=== PATIENT | female | born 1960 | race Caucasian/White ===

== ENCOUNTER → 2016-11-05 | Day surgery (SDC) | payer MEDICARE, OTHER ==
[~2016-11-05] MED LIST: Lactated Ringers 1,000 ML IV SCH; Propofol 200 MG/20 ML SDV IV ONE
[2016-11-05 10:51] VITALS: BP 144/81
--- NOTE | 2016-11-08 07:23 | OR ---
DATE OF OPERATION: 11/05/2016 PREOPERATIVE DIAGNOSIS: 1. FAMILY HISTORY OF COLON CANCER. 2. HISTORY OF POLYPS. POSTOPERATIVE DIAGNOSIS: 1. FAMILY HISTORY OF COLON CANCER. 2. HISTORY OF POLYPS. SURGEON: Hao Herrera MD PROCEDURE: FULL-LENGTH COLONOSCOPY. ANESTHESIA: [employer] due to obesity, history of anemia, and chest pain. COMPLICATIONS: None. SPECIMEN: None. FINDINGS: 1. Full-length colonoscopy. 2. Mild distal sigmoid diverticulosis. RECOMMENDATIONS: Follow up colonoscopy every 5 years. INDICATIONS: The patient was in for a physical. She has a family history of colon cancer and prior polyps removed. She is due for a five year follow up scope. DESCRIPTION OF PROCEDURE: The patient was prepped and draped, placed in the left lateral decubitus position. A lubricated Olympus colonoscope was inserted and easily advanced to the cecum. Direct visualization of the ileocecal valve and appendiceal orifice was accomplished. Bowel prep was marginal. A lot of liquid stool present most of this was able to be suctioned. Upon withdrawal, cecum, ascending, and transverse colon were completely unremarkable, throughout the entire left colon. I found no signs of any polyps, masses, ulcerations, or bleeding sites. No vascular abnormalities or signs of colitis. The patient does have diverticular disease mild in the mid to distal sigmoid colon up into the rectosigmoid junction. No signs of any acute inflammatory change. The rectal vault was benign. Retroflexion of the scope in the rectum showed no anal lesions. Air was then suctioned. The scope was removed without complication. RADHA/RENA /[id number]
== END ==
LOC: CC.SDS 09:05
PROVIDERS: ATTEND Family Medicine
DX: Z12.11 Encounter for screening for malignant neoplasm of colon (principal); Z80.0 Family history of malignant neoplasm of digestive organs; Z86.010 Personal history of colon polyps; K57.30 Diverticulosis of large intestine without perforation or abscess without bleeding; D51.9 Vitamin B12 deficiency anemia, unspecified; Z79.899 Other long term (current) drug therapy; Z98.84 Bariatric surgery status; Z98.890 Other specified postprocedural states; Z96.649 Presence of unspecified artificial hip joint
CPT/HCPCS: G0105; J2704; J7120; 00810

== ENCOUNTER 2020-09-23 12:20 | Emergency (ER) | payer MEDICARE, OTHER ==
[2020-09-23 13:00] LABS: CHLORIDE,CL 104 mEq/L (98-106); SODIUM,NA 140 mEq/L (136-145)
[2020-09-23 13:06] VITALS: BP 142/68; PULSE 79
--- NOTE | 2020-09-23 13:29 | EDM.PDOC ---
ED HPI GENERAL MEDICAL PROBLEM - General Chief Complaint: General Stated Complaint: DIZZY,N/V Time Seen by Provider: 09/23/20 12:55 Source of Information: Reports: Patient History Limitations: Reports: No Limitations - History of Present Illness INITIAL COMMENTS - FREE TEXT/NARRATIVE: Ksenia is a 60 yo female who presents to the ED with complaints of dizziness. States it came on all of a sudden this morning. She states it is a little better presently and notices if she doesn't look up or move her head it is a lot better. States when she was dizzy she did dry heave a few times. Currently denies any dizziness at this time. States when she was walking she felt worse turning her head to the right as compared to the left. States she feels exhausted today. Admits to a lot of stress as her is currently on hospice care and she is the one caring for him. States she does have a sister who has had brain aneurysm's in the past. She denies any headaches, no vision changes, loss of vision, chest pain, shortness of breath, palpitations, etc.. No urinary symptoms. At this time admit she feels she is almost back to her baseline. Right Hip Pain Score (Numeric/FACES): 3 - Related Data Allergies Allergy/AdvReac Type Severity Reaction Status Date / Time No Known Allergies Allergy Verified 09/23/20 12:30 Home Meds: Home Meds Ascorbic Acid [Vitamin C] 500 mg PO DAILY 11/04/16 [History] Cholecalciferol (Vitamin D3) [Vitamin D] 5,000 units PO DAILY 11/04/16 [History] Cyanocobalamin (Vitamin B-12) [Cyanocobalamin Injection] 1,000 mcg IM Q30D 11/04/16 [History] Ferrous Sulfate [Iron] 325 mg PO TID 11/04/16 [History] Magnesium Oxide [Magnesium] 400 mg PO DAILY 11/04/16 [History] Vitamin A 8,000 units PO DAILY 11/04/16 [History] Meclizine [Antivert] 25 mg PO TID PRN #15 tab 09/23/20 [Rx] Pacific-3 Fatty Acids/Fish Oil [Fish Oil 1,000 mg Capsule] 1 cap PO DAILY 09/23/20 [History] Past Medical History HEENT History: Reports: Cataract - Past Surgical History Musculoskeletal Surgical History: Reports: Hip Replacement Other Musculoskeletal Surgeries/Procedures:: R) total hip replacement 09/15/19 Social & Family History - Tobacco Use Tobacco Use Status *Q: Never Tobacco User - Caffeine Use Caffeine Use: Reports: Coffee - Recreational Drug Use Recreational Drug Use: No ED ROS GENERAL - Review of Systems Review Of Systems: See Below Constitutional: Reports: Fatigue. Denies: Fever, Chills, Weakness HEENT: Reports: Vertigo. Denies: Ear Discharge, Ear Pain, Hearing Loss, Vision Change Respiratory: Denies: Shortness of Breath Cardiovascular: Reports: Lightheadedness. Denies: Chest Pain, Dyspnea on Exertion, Edema, Orthopnea, Palpitations GI/Abdominal: Reports: No Symptoms : Reports: No Symptoms Neurological: Reports: Dizziness. Denies: Headache, Numbness, Paresthesia, Pre- Existing Deficit, Syncope, Tingling, Trouble Speaking, Weakness Psychiatric: Reports: No Symptoms ED EXAM, GENERAL - Physical Exam Exam: See Below Exam Limited By: No Limitations General Appearance: Alert, No Apparent Distress Eye Exam: Bilateral Eye: EOMI, Normal Inspection, PERRL Ears: Normal External Exam, Hearing Grossly Normal, Normal TMs Nose: Normal Inspection, No Blood Throat/Mouth: Normal Inspection, Normal Oropharynx, No Airway Compromise Head: Atraumatic, Normocephalic Neck: Normal Inspection, Supple, Non-Tender. No: Carotid Bruit Respiratory/Chest: No Respiratory Distress, Lungs Clear, Normal Breath Sounds, No Accessory Muscle Use Cardiovascular: Regular Rate, Rhythm, No Edema, No Murmur GI/Abdominal: Normal Bowel Sounds, Soft, Non-Tender, No Organomegaly, No Distention Extremities: Normal Inspection, No Pedal Edema Neurological: Alert, Oriented, CN II-XII Intact, Normal Cognition, Normal Gait, No Motor/Sensory Deficits Psychiatric: Normal Affect, Normal Mood Skin Exam: Warm, Dry, Intact, Normal Color, No Rash #1 Interpretation EKG Date: 09/23/20 Time: 12:45 Rhythm: NSR [place]: Normal QRS: Normal ST-T: Normal QT: Normal Comparison: NA - No Prior EKG Course - Vital Signs Last Recorded V/S: Last Vital Signs Temp 96.5 F L 09/23/20 13:06 Pulse 79 09/23/20 13:06 Resp 12 09/23/20 13:06 BP 142/68 H 09/23/20 13:06 Pulse Ox 97 09/23/20 13:06 - Orders/Labs/Meds Labs: Laboratory Tests 09/23/20 09/23/20 09/23/20 Range/Units 12:35 12:35 12:35 WBC 9.9 (5.0-10.0) 10^3/uL RBC 4.86 (4.00-5.50) 10^6/uL Hgb 14.4 (12.0-16.0) g/dL Hct 43.9 (37.0-47.0) % MCV 90.3 (82.0-94.0) fL MCH 29.6 (27.0-32.0) pg MCHC 32.8 L (33.0-38.0) g/dL RDW Coeff of [place] 12.6 (11.0-15.0) % Plt Count 259 (150-400) 10^3/uL Neut % (Auto) 82.9 (35-85) % Lymph % (Auto) 11.0 (10-55) % [place] % (Auto) 5.0 (0-16) % Eos % (Auto) 0.8 (0-5) % Baso % (Auto) 0.3 (0-3) % Neut # (Auto) 8.23 H (1.80-7.00) 10^3/uL Lymph # (Auto) 1.09 (1.00-4.80) 10^3/uL [place] # (Auto) 0.50 (0.00-0.80) 10^3/uL Eos # (Auto) 0.08 (0.00-0.45) 10^3/uL Baso # (Auto) 0.03 10^3/uL Sodium 140 (136-145) mEq/L Potassium 5.2 H D (3.5-5.0) mEq/L Chloride 104 (98-106) mEq/L Carbon Dioxide 26 (21-32) mmol/L BUN 14 (7-18) mg/dL Creatinine 0.9 (0.6-1.0) mg/dL Est Cr Clr Drug Dosing 65.45 mL/min Estimated GFR (MDRD) > 60 (>=60) mL/min Glucose 151 H D (75-99) mg/dL Calcium 9.9 (8.4-10.1) mg/dL Creatine Kinase 86 (21-215) U/L Troponin I < 0.017 (0.00-0.06) ng/mL Urine Color Yellow (YELLOW) Urine Appearance Clear (CLEAR) Urine pH 7.5 (4.5-8.0) Ur Specific [place] 1.020 (1.003-1.020) Urine Protein Negative (NEGATIVE) mg/dL Urine Glucose (UA) Negative (NEGATIVE) mg/dL Urine Ketones Negative (NEGATIVE) mg/dL Urine Occult Blood Negative (NEGATIVE) Urine Nitrite Negative (NEGATIVE) Urine Bilirubin Negative (NEGATIVE) Urine Urobilinogen 0.2 (0.2-1.0) EU/dL Ur Leukocyte Esterase Small H (NEGATIVE) Urine RBC Not seen (0-5) /HPF Urine WBC 0-5 (0-5) /HPF Departure - Departure Time of Disposition: 13:29 Disposition: Home, Self-Care 01 Clinical Impression: BPPV (benign paroxysmal positional vertigo) Qualifiers: Laterality: right Qualified Code(s): H81.11 - Benign paroxysmal vertigo, right ear - Discharge Information *PRESCRIPTION DRUG MONITORING PROGRAM REVIEWED*: Not Applicable *COPY OF PRESCRIPTION DRUG MONITORING REPORT IN PATIENT LISA: Not Applicable Prescriptions: Meclizine [Antivert] 25 mg PO TID PRN #15 tab PRN Reason: Dizziness Instructions: Vertigo, [id number], Benign Positional Vertigo Referrals: Agustina Velasquez PA [Primary Care Provider] - Additional Instructions: 1) Meclizine 25mg three times a day as needed for vertigo. Sent to [facility] 2) Canalith repositioning with physical therapy today 3) Rest today, no sudden head movements 4) Activity as tolerated 5) If any symptoms as discussed (worsening vertigo, headaches, increased N/V, chest pain, palpitations, shortness of breath, weakness, difficulty walking, etc...). advise returning for reevaluation. Sepsis Event Note (ED) - Evaluation Sepsis Screening Result: No Definite Risk - Focused Exam Vital Signs: Vital Signs Temp Pulse Resp BP Pulse Ox 09/23/20 13:06 96.5 F L 79 12 142/68 H 97 09/23/20 12:32 96.5 F L 73 18 157/61 H 100 - Problem List & Annotations (1) BPPV (benign paroxysmal positional vertigo) SNOMED Code(s): 106410368 Code(s): H81.10 - BENIGN PAROXYSMAL VERTIGO, UNSPECIFIED EAR Status: Acute Current Visit: Yes Qualifiers: Qualified Code(s): H81.11 - Benign paroxysmal vertigo, right ear - Problem List Review Problem List Initiated/Reviewed/Updated: Yes - Assessment/Plan Plan: During Foreman Hallpike maneuver test, patient symptoms significantly improved afterwards. Mild symptoms noted still with ambulation and turning head to the right, resolved turning head to the left. EKG showed normal sinus rhythm. Laboratory work to include cardiac rule out were unremarkable. Potassium level slightly elevated and encourage stopping potassium supplementation. Will discharge and send to physical therapy for canalith repositioning. Discussed signs and symptoms to watch for. Patient ambulating and in satisfactory condition.
== END 2020-09-23 13:39 | disposition home or self-care (01) ==
LOC: SUPCPDRO 12:20 → CC.ED 12:20
DX: H81.11 Benign paroxysmal vertigo, right ear (principal); Z79.899 Other long term (current) drug therapy
CPT/HCPCS: 36415; 80048; 81001; 82550; 84484; 85025; 93005; 99284; 99284-25

== ENCOUNTER → 2021-06-26 | Day surgery (SDC) | payer MEDICARE, OTHER ==
[~2021-06-26] MED LIST changes: +Ketamine 200 MG/20 ML MDV ONE; -Lactated Ringers 1,000 ML IV SCH; -Propofol 200 MG/20 ML SDV IV ONE; +Propofol 200 MG/20 ML SDV ONE; +fentaNYL 100 MCG/2 ML SDV ONE
[2021-06-26] MEDS: Lactated Ringers 1,000 ML IV SCH (10:38)
[2021-06-26 13:57] VITALS: BP 156/59; PULSE 77
== END ==
LOC: CC.SDS 09:48
PROVIDERS: ATTEND Family Medicine
DX: Z12.11 Encounter for screening for malignant neoplasm of colon (principal); K57.30 Diverticulosis of large intestine without perforation or abscess without bleeding; F32.A Depression, unspecified; E66.8 Other obesity; E55.9 Vitamin D deficiency, unspecified; E53.8 Deficiency of other specified B group vitamins; G25.81 Restless legs syndrome; Z80.0 Family history of malignant neoplasm of digestive organs; Z86.010 Personal history of colon polyps; Z96.641 Presence of right artificial hip joint; Z79.899 Other long term (current) drug therapy; Z98.890 Other specified postprocedural states; Z68.38 Body mass index [BMI] 38.0-38.9, adult
CPT/HCPCS: J2704; J3010; J7120